=== PATIENT | female | born 1980 | race Caucasian/White ===

== ENCOUNTER 2017-06-20 17:02 | Emergency (ER) | payer OTHER ==
[~2017-06-20] VITALS: Ht 157.5 cm; Wt 65.8 kg
[~2017-06-20 17:02] MED LIST: ALLEGRA-D 24 H1 EACH PO; AMOXICILLIN 50500 MG PO; AMOXICILLIN875 MG PO; CEPHALEXIN 500500 M3 PO; CIPRO250 M1 PO; DOXYCYCLINE 10100 MG PO; HYDROCODONE-AP1 EAC6 PO; IBUPROFEN 600600 M1 PO; IBUPROFEN 800800 M1 PO; IBUPROFEN 800800 MG PO; KEFLEX500 MG PO; MEDROLDOSEPACK PO; NOHOMEMEDICATIONS; NORCO 5-325 TA1 EACH PO; PERCOCET 5-3251 EACH PO; PHENERGAN 25 MG25 M1 PO; PROAIR HFA8.5 GM INH; PROMETHAZINE D480 ML PO; PYRIDIUM200 MG PO; TAMSULOSIN HCL0.4 M1 PO; TESSALON PERLE100 MG PO; TORADOL 10 MG T10 MG PO; ULTRAM 50MG TAB50 MG PO; ZOFRAN4 MG PO; ZOLOFT100 MG PO; ZPAK PO
[2017-06-20] MEDS ORDERED: PROAIR HFA8.5 GM INH (18:57)
[2017-06-20 19:02] LABS: URINE BILIRUBIN NEGATIVE (Negative); URINE BLOOD NEGATIVE (Negative); URINE CLARITY CLEAR; URINE COLOR YELLOW; URINE GLUCOSE-RANDOM NEGATIVE (Negative); URINE KETONES NEGATIVE (Negative); URINE LEUKOCYTES-REFLEX 2+ (Negative); URINE NITRITE-REFLEX NEGATIVE (Negative); URINE PROTEIN NEGATIVE (Negative); URINE SPECIFIC GRAVITY <= 1.005 (1.005-1.030); URINE UROBILINOGEN 0.2 E.U./dl (0.2-1.0)
[2017-06-20 19:09] LABS: CASTS None Seen /LPF (None Seen); CRYSTALS None Seen /LPF (None Seen); MUCUS None Seen strn/LPF (None Seen); SQUAMOUS >10 Many /LPF (0-3)
[2017-06-20 19:10] LABS: BACTERIA-REFLEX 1-9 Few /HPF (None Seen); URINE RBC 0-2 Rare /HPF (0-2); URINE WBC-REFLEX 6-15 Few /HPF (0-5)
[2017-06-20] MEDS ORDERED: BACTRIM DS TAB1 EACH PO (19:14)
[2017-06-20 19:31] LABS: INFLUENZA A ANTIGEN None Detected (None Detect); INFLUENZA B ANTIGEN None Detected (None Detect)
[2017-06-20 19:50] VITALS: BP 141/97
[2017-06-20 19:56] LABS: AMP/METHAMP POSITIVE (Negative); BARBITURATES Negative (Negative); BENZODIAZEPINES Negative (Negative); COCAINE Negative (Negative); METHADONE Negative (Negative); OPIATES Negative (Negative); PCP Negative (Negative); THC POSITIVE (Negative)
== END 2017-06-20 19:52 | disposition home or self-care (01) ==
LOC: M.ERS 17:02
PROVIDERS: Physician Assistant
DX: R59.0 Localized enlarged lymph nodes (principal); J20.9 Acute bronchitis, unspecified; I10 Essential (primary) hypertension; H91.91 Unspecified hearing loss, right ear; Z20.2 Contact with and (suspected) exposure to infections with a predominantly sexual mode of transmission; Z88.5 Allergy status to narcotic agent; Z88.6 Allergy status to analgesic agent

== ENCOUNTER 2019-04-23 19:50 | Emergency (ER) | payer OTHER ==
[~2019-04-23] VITALS: Ht 152.4 cm; Wt 72.6 kg
[~2019-04-23 19:50] MED LIST changes: +BACTRIM DS TAB1 EACH PO
[2019-04-23] MEDS ORDERED: PREDNISONE 20 M20 M1 PO (20:40)
[2019-04-23 21:00] VITALS: BP 161/91
== END 2019-04-23 21:00 | disposition home or self-care (01) ==
LOC: M.ERS 19:50
DX: R21 Rash and other nonspecific skin eruption (principal); T40.4X5A Adverse effect of other synthetic narcotics, initial encounter; T36.1X5A Adverse effect of cephalosporins and other beta-lactam antibiotics, initial encounter; Y92.89 Other specified places as the place of occurrence of the external cause

== ENCOUNTER 2020-02-20 00:55 | Emergency (ER) | payer OTHER ==
[~2020-02-20] VITALS: Ht 152.4 cm; Wt 68.0 kg
[~2020-02-20 00:55] MED LIST changes: +PREDNISONE 20 M20 M1 PO
[2020-02-20 01:45] LABS: INFLUENZA A ANTIGEN Negative (Negative); INFLUENZA B ANTIGEN Negative (Negative)
[2020-02-20] MEDS ORDERED: AUGMENTIN 500-1 EACH PO (02:39)
[2020-02-20] MEDS ORDERED: MEDROLDOSEPACK PO (02:39)
[2020-02-20] MEDS ORDERED: TESSALON PERLE100 M1 PO (02:48)
[2020-02-20 02:53] VITALS: BP 122/67
== END 2020-02-20 02:53 | disposition home or self-care (01) ==
LOC: M.ERS 00:55
PROVIDERS: Personal Emergency Response Attendant
DX: J32.9 Chronic sinusitis, unspecified (principal); Z20.828 Contact with and (suspected) exposure to other viral communicable diseases; F17.210 Nicotine dependence, cigarettes, uncomplicated; Z98.51 Tubal ligation status; Z88.5 Allergy status to narcotic agent; Z88.6 Allergy status to analgesic agent; Z88.8 Allergy status to other drugs, medicaments and biological substances; Z86.19 Personal history of other infectious and parasitic diseases

== ENCOUNTER 2020-03-16 05:52 | Emergency (ER) | payer OTHER ==
[~2020-03-16] VITALS: Ht 152.4 cm; Wt 70.3 kg
[~2020-03-16 05:52] MED LIST changes: +AUGMENTIN 500-1 EACH PO; +TESSALON PERLE100 M1 PO
[2020-03-16] MEDS ORDERED: HYDROCODON-ACE1 EAC8 PO (06:14)
[2020-03-16] MEDS ORDERED: CLEOCIN HCL300 MG PO (06:14)
[2020-03-16 06:23] VITALS: BP 169/110
== END 2020-03-16 06:24 | disposition home or self-care (01) ==
LOC: M.ERS 05:52
DX: K08.89 Other specified disorders of teeth and supporting structures (principal); K03.81 Cracked tooth; F17.210 Nicotine dependence, cigarettes, uncomplicated; Z98.51 Tubal ligation status; Z88.5 Allergy status to narcotic agent; Z88.6 Allergy status to analgesic agent; Z88.8 Allergy status to other drugs, medicaments and biological substances

== ENCOUNTER 2020-07-07 12:48 | Emergency (ER) | payer OTHER ==
[~2020-07-07] VITALS: Ht 152.4 cm; Wt 72.6 kg
[~2020-07-07 12:48] MED LIST changes: +CLEOCIN HCL300 MG PO; +HYDROCODON-ACE1 EAC8 PO
[2020-07-07] MEDS ORDERED: AUGMENTIN 875-1 EACH PO (13:14)
[2020-07-07] MEDS ORDERED: NORCO5 PO (13:14)
[2020-07-07] MEDS ORDERED: IBUPROFEN 800800 M1 PO (13:14)
[2020-07-07 13:32] VITALS: BP 154/74
== END 2020-07-07 13:33 | disposition home or self-care (01) ==
LOC: M.ERS 12:48
DX: S51.851A Open bite of right forearm, initial encounter (principal); S61.451A Open bite of right hand, initial encounter; L08.9 Local infection of the skin and subcutaneous tissue, unspecified; K08.89 Other specified disorders of teeth and supporting structures; F17.210 Nicotine dependence, cigarettes, uncomplicated; Z88.5 Allergy status to narcotic agent; Z88.6 Allergy status to analgesic agent; Z88.8 Allergy status to other drugs, medicaments and biological substances; Z98.51 Tubal ligation status; Z98.890 Other specified postprocedural states; Z86.19 Personal history of other infectious and parasitic diseases; W55.01XA Bitten by cat, initial encounter; Y93.89 Activity, other specified; Y92.89 Other specified places as the place of occurrence of the external cause; Y99.8 Other external cause status

== ENCOUNTER 2020-08-26 18:44 | Emergency (ER) | payer OTHER ==
[~2020-08-26] VITALS: Ht 152.4 cm; Wt 68.0 kg
[~2020-08-26 18:44] MED LIST changes: +AUGMENTIN 875-1 EACH PO; +NORCO5 PO
[2020-08-26] MEDS ORDERED: ZANAFLEX4 MG PO (21:56)
[2020-08-26] MEDS ORDERED: NORCO5 PO (21:56)
[2020-08-26 22:04] VITALS: BP 160/81
== END 2020-08-26 22:04 | disposition home or self-care (01) ==
LOC: M.ERS 18:44
DX: S16.1XXA Strain of muscle, fascia and tendon at neck level, initial encounter (principal); S39.012A Strain of muscle, fascia and tendon of lower back, initial encounter; S29.012A Strain of muscle and tendon of back wall of thorax, initial encounter; F17.210 Nicotine dependence, cigarettes, uncomplicated; Z88.5 Allergy status to narcotic agent; Z88.1 Allergy status to other antibiotic agents; Z88.6 Allergy status to analgesic agent; V89.2XXA Person injured in unspecified motor-vehicle accident, traffic, initial encounter; Y93.89 Activity, other specified; Y92.89 Other specified places as the place of occurrence of the external cause; Y99.8 Other external cause status